=== PATIENT | female | born 1935 | race African-American/Black ===

== ENCOUNTER 2023-03-26 21:23 | Emergency (ER) | payer SELFPAY ==
[2023-03-26 21:40] VITALS: RESP 18; BMI 28.4
[2023-03-26] MEDS ORDERED: PROCHLORPERAZINE INJECTION 10 MG/2 ML VIAL IVPB ONE (23:03)
[2023-03-26] MEDS ORDERED: SODIUM CHLORIDE 0.9% 500 ML INFUS.BAG IV ONE (23:17)
[2023-03-26] MEDS ORDERED: PROCHLORPERAZINE INJECTION 10 MG/2 ML VIAL ONE (23:35)
[2023-03-26 23:56] LABS: BASO % 0.8 % (0-2.0); EOS % 1.2 % (0-4.5); HEMATOCRIT 32.5 % (32.4-45.2); HEMOGLOBIN 10.7 GM/dL (10.7-15.3); LYMPH % 30.7 % (8-40); MCH 29.2 pg (25.7-33.7); MEAN CELL VOLUME 88.5 fl (80-96); MEAN PLT VOLUME 7.6 fl (7.5-11.1); MONO % 11.7 % (3.8-10.2); NEUT % 55.6 % (42.8-82.8); PLATELET COUNT 229 10^3/uL (134-434); RBC 3.67 M/mm3 (3.60-5.2); RDW 14.3 % (11.6-15.6); WHITE BLOOD COUNT 4.2 K/mm3 (4.0-10.0)
[2023-03-27 00:18] LABS: POTASSIUM 4.3 mmol/L (3.5-5.1)
[2023-03-27 00:20] LABS: CALCIUM 9.1 mg/dL (8.5-10.1)
[2023-03-27 00:21] LABS: ALBUMIN 3.6 g/dl (3.4-5.0); BLOOD UREA NITROGEN 30.5 mg/dL (7-18)
[2023-03-27 00:24] LABS: CREATININE 0.8 mg/dL (0.55-1.3)
[2023-03-27 00:26] LABS: BILIRUBIN,TOTAL 0.2 mg/dL (0.2-1); TOT PROT 7.3 g/dl (6.4-8.2)
[2023-03-27 02:31] VITALS: BP 122/76; PULSE 86; TEMP 98.2
== END 2023-03-27 02:31 | disposition home or self-care (01) ==
LOC: JER 21:23
PROC: 3E033GC Introduction of Other Therapeutic Substance into Peripheral Vein, Percutaneous Approach (ICD-10-PCS; principal; 2023-03-27)
PROC: 3E033GC Introduction of Other Therapeutic Substance into Peripheral Vein, Percutaneous Approach (ICD-10-PCS; 2023-03-27)
DX: R51.9 Headache, unspecified (principal); H53.71 Glare sensitivity; R53.1 Weakness; H53.8 Other visual disturbances
CPT/HCPCS: 36415; 70450-TC; 80053; 85025; 93005; 93010; 99285-25